=== PATIENT | female | born 1955 ===

== ENCOUNTER 2018-10-11 14:17 | Observation (INO) | payer SELFPAY ==
[2018-10-11] MEDS ORDERED: Sodium Chloride 0.9% 500 ML IV STA (17:36)
[2018-10-11] MEDS ORDERED: Sodium Chloride 0.9% 500 ML IV ONE (17:47)
--- NOTE | 2018-10-11 17:53 | C.PDOC ---
History Of Present Illness 62 year old female presents to the ED for evaluation of dizziness near syncope x3 episodes associated with shortness of breath and generalized body aches that began this morning. Patient reports having similar symptoms x1 week ago a ssociated with nausea , left-sided facial tingling, and neck pulsating. Notes she did not follow up with PMD Dr. Rivera from [facility] when the symptoms first began. Denies fever, chills, nausea/vomiting today, chest pain, facial tingling today, neck pulsating today, and any other associated symptoms. Time Seen by Provider: 10/11/18 16:51 Chief Complaint (Nursing): Dizziness/Lightheaded History Per: Patient History/Exam Limitations: no limitations Onset/Duration Of Symptoms: Days Current Symptoms Are (Timing): Still Present Past Medical History Reviewed: Historical Data, Nursing Documentation, Vital Signs Vital Signs: Last Vital Signs Temp 98.3 F 10/11/18 15:00 Pulse 77 10/11/18 15:00 Resp 18 10/11/18 15:00 BP 112/70 10/11/18 15:00 Pulse Ox 100 10/11/18 15:00 - Medical History PMH: Atrial Fibrillation (REPORTS "TACHYCARDIA" TAKING PLAVIX), HTN Family History: States: Unknown Family Hx - Social History Hx Tobacco Use: No Hx Alcohol Use: No Hx Substance Use: No Review Of Systems Except As Marked, All Systems Reviewed And Found Negative. Constitutional: Positive for: Other (generalized body weakness.). Negative for: Fever, Chills Cardiovascular: Negative for: Chest Pain Respiratory: Positive for: Shortness of Breath Gastrointestinal: Negative for: Vomiting Neurological: Positive for: Other (near syncope.). Negative for: Weakness, Numbness, Incoordination Physical Exam - Physical Exam Appears: Well, Non-toxic, No Acute Distress Skin: Normal Color, Warm, Dry Head: Atraumatic, Normacephalic Eye(s): bilateral: PERRL Oral Mucosa: Moist Neck: Normal ROM, Trachea Midline, Supple Chest: Symmetrical, No Deformity Cardiovascular: Rhythm Regular, No Murmur Respiratory: Normal Breath Sounds, No Rales, No Rhonchi, No Wheezing Extremity: Normal ROM (x4) Neurological/Psych: Oriented x3, Normal Speech, Normal Cognition, Normal Motor, Normal Sensation, Normal Reflexes ED Course And Treatment - Laboratory Results Result Diagrams: 10/11/18 17:44 10/11/18 17:44 O2 Sat by Pulse Oximetry: 100 (RA) Pulse Ox Interpretation: Normal - Other Rad CXR X-Ray: Viewed By Me, Read By Radiologist Interpretation: Accession No. : [id number]. Patient Name / ID : MONDRAGON / [id number]. Exam Date : 10/11/2018 17:40:42 ( Approved ). Study Comment : Sex / Age : F / 62Y. Creator : Flaquito Phillips MD. Dictator : Flaquito Phillips MD. Box Liner : Bods Developer : Flaquito Phillips MD. Approver2 : Report Date : 10/11/2018 18:16:48. My Comment : . Date of service: 10/11/2018. PROCEDURE: CHEST RADIOGRAPH, 1 VIEW. HISTORY: near syncope, sob. COMPARISON: None available. FINDINGS: LUNGS: Clear. PLEURA: No pneumothorax or pleural fluid seen. CARDIOVASCULAR: No aortic atherosclerotic calcification present. No radiographic findings to suggest acute or significant cardiovascular disease. OSSEOUS STRUCTURES: No significant abnormalities. VISUALIZED UPPER ABDOMEN: Normal. OTHER FINDINGS: None. IMPRESSION: No active disease. - CT Scan/US Head CT Other Rad Studies (CT/US): Read By Radiologist, Radiology Report Reviewed CT/US Interpretation: Accession No. : [id number]. Patient Name / ID : MONDRAGON / [id number]. Exam Date : 10/11/2018 18:12:36 ( Approved ). Study Comment : Sex / Age : F / 62Y. Creator : Jesus Monk MD. Dictator : Jesus Monk MD. Box Liner : Bods Developer : Jesus Monk MD. Approver2 : Report Date : 10/11/2018 18:33:37. My Comment : . Date of service: 10/11/2018. PROCEDURE: CT HEAD WITHOUT CONTRAST. HISTORY: near syncope. COMPARISON: None available. TECHNIQUE: Axial computed tomography images were obtained through the head/brain without intravenous contrast. Radiation dose: Total exam DLP = 883.33 mGy-cm. This CT exam was performed using one or more of the following dose reduction techniques: Automated exposure control, adjustment of the mA and/or kV according to patient size, and/or use of iterative reconstruction technique. FINDINGS: HEMORRHAGE: No intracranial hemorrhage. BRAIN: No mass effect or edema. No atrophy or chronic microvascular ischemic changes. VENTRICLES: Unremarkable. No hydrocephalus. CALVARIUM: Unremarkable. PARANASAL SINUSES: Unremarkable as visualized. No significant inflammatory changes. MASTOID AIR CELLS: Unremarkable as visualized. No inflammatory changes. OTHER FINDINGS: None. IMPRESSION: No evidence of acute intracranial hemorrhage mass effect or midline shift. Progress Note: PE: CT Head w/out contrast. Blood sent. CXR. Urinalysis. EKG. Disposition - Disposition Disposition Time: 19:00 Condition: FAIR Forms: [facility] (Japanese) - Clinical Impression Clinical Impression: Near syncope - PA / PAIN COORDINATOR / Resident Statement MD/DO has reviewed & agrees with the documentation as recorded. - Scribe Statement The provider has reviewed the documentation as recorded by the Scribe (Yomaira Bennett) All medical record entries made by the Scribe were at my direction and personally dictated by me. I have reviewed the chart and agree that the record accurately reflects my personal performance of the history, physical exam, medical decision making, and the department course for this patient. I have also personally directed, reviewed, and agree with the discharge instructions and disposition. Physician Patient Turnover Patient Signed Over To: Elliott Fulton Handoff Comments: pending EKG and dispo
[2018-10-11 18:05] LABS: BASO # 0.1 K/uL (0.0-0.2); EOS # 0.1 K/uL (0.0-0.7); EOS % 1.1 % (0.0-4.0); HEMOGLOBIN 12.3 g/dL (11.0-16.0); LYMPH # 3.1 K/uL (1.0-4.3); LYMPH % 36.9 % (20.0-40.0); MEAN CELL VOLUME 81.1 fL (81.0-99.0); MEAN CORPUSCULAR HEMOGLOBIN 27.2 pg (27.0-31.0); MEAN CORPUSCULAR HGB CONC 33.6 g/dL (33.0-37.0); MEAN PLATELET VOLUME 9.4 fL (7.2-11.7); MONO # 0.7 K/uL (0.0-0.8); MONO % 8.1 % (0.0-10.0); NEUT # 4.5 K/uL (1.8-7.0); NEUT % 52.9 % (50.0-75.0); RBC 4.52 Mil/uL (3.80-5.20); RED CELL DISTRIBUTION WIDTH 13.6 % (11.5-14.5); WHITE BLOOD COUNT 8.4 K/uL (4.8-10.8)
[2018-10-11 18:06] LABS: ALB/GLOB RATIO 1.1 (1.0-2.1); BLOOD UREA NITROGEN 13 mg/dL (7-17); CALCIUM 9.3 mg/dl (8.6-10.4); GFR NON-AFRICAN AMERICAN > 60
[2018-10-11 18:09] LABS: ALT/SGPT 18 U/L (9-52); AST/SGOT 31 U/L (14-36)
[2018-10-11 18:13] LABS: INR 1.1; PROTHROMBIN TIME 11.9 SECONDS (9.7-12.2)
[2018-10-11 18:17] LABS: CK-MB 0.54 ng/mL (0.0-3.38)
--- NOTE | 2018-10-11 18:20 | RAD ---
Date of service: 10/11/2018 PROCEDURE: CHEST RADIOGRAPH, 1 VIEW HISTORY: near syncope, sob COMPARISON: None available. FINDINGS: LUNGS: Clear. PLEURA: No pneumothorax or pleural fluid seen. CARDIOVASCULAR: No aortic atherosclerotic calcification present. No radiographic findings to suggest acute or significant cardiovascular disease. OSSEOUS STRUCTURES: No significant abnormalities. VISUALIZED UPPER ABDOMEN: Normal. OTHER FINDINGS: None. IMPRESSION: No active disease.
--- NOTE | 2018-10-11 18:37 | CT ---
Date of service: 10/11/2018 PROCEDURE: CT HEAD WITHOUT CONTRAST. HISTORY: near syncope COMPARISON: None available. TECHNIQUE: Axial computed tomography images were obtained through the head/brain without intravenous contrast. Radiation dose: Total exam DLP = 883.33 mGy-cm. This CT exam was performed using one or more of the following dose reduction techniques: Automated exposure control, adjustment of the mA and/or kV according to patient size, and/or use of iterative reconstruction technique. FINDINGS: HEMORRHAGE: No intracranial hemorrhage. BRAIN: No mass effect or edema. No atrophy or chronic microvascular ischemic changes. VENTRICLES: Unremarkable. No hydrocephalus. CALVARIUM: Unremarkable. PARANASAL SINUSES: Unremarkable as visualized. No significant inflammatory changes. MASTOID AIR CELLS: Unremarkable as visualized. No inflammatory changes. OTHER FINDINGS: None. IMPRESSION: No evidence of acute intracranial hemorrhage mass effect or midline shift.
[2018-10-11 20:12] LABS: SQUAMOUS EPITHIAL 1 /hpf (0-5); URINE BILIRUBIN NEGATIVE (NEGATIVE); URINE BLOOD TRACE (NEGATIVE); URINE CLARITY Clear (Clear); URINE COLOR Colorless (YELLOW); URINE GLUCOSE (UA) NORMAL (Normal); URINE LEUKOCYTE ESTERASE NEG Leu/uL (Negative); URINE PROTEIN NEGATIVE (NEGATIVE); URINE UROBILINOGEN NORMAL mg/dL (0.2-1.0)
--- NOTE | 2018-10-12 02:05 | CP.PCM.HP ---
<Zulema Johnson - Last Filed: 10/12/18 01:57> History of Present Illness - History of Present Illness History of Present Illness: cc: "dizziness" Ms. Singh Linares is a 62 year old [place] female PMH tachycardia, childhood ear infections complaining of 3 dizzy spells today leading to near syncope. She has had a constant high pitched tinnitus for years and transitory dizzy spells over the last two years. Today, she had 3 dizzy spells in one day: 7:40am, 8am, and 8:30am. All three times, she felt her knees go weak and family caught her fall while she slid down (to the floor, onto the bed, etc). She had no loss of consciousness and the dizziness immediately resolved, but she had a lingering pulsating posterior neck pain. This happened two time last week, but this is the first time that multiple episodes have happened in the same day. There is associated headache and nausea, but no vomiting. PMD: [facility] - Dr. Rivera PMH: tachycardia, childhood ear infections Med: Plavix, Atenolol All: NKDA PSxHx: hysterectomy 2/2 fibroids FamHx: father-colon CA: @83, mother-pacemaker: alive SocHx: Denies tobacco Present on Admission - Present on Admission Any Indicators Present on Admission: No Review of Systems - Constitutional Constitutional: Headache - EENT Ears: Decreased Hearing, Tinnitus, Dizziness - Gastrointestinal Gastrointestinal: Nausea. absent: Vomiting Past Patient History - Past Medical History & Family History Pertinent Family History: father-colon CA: @83, mother-pacemaker: alive - Past Social History Smoking Status: Never Smoked - CARDIAC Hx Atrial Fibrillation: Yes (REPORTS "TACHYCARDIA" TAKING PLAVIX) Hx Hypertension: Yes - PSYCHIATRIC Hx Substance Use: No - SURGICAL HISTORY Hx Hysterectomy: Yes - ANESTHESIA Hx Anesthesia: Yes Hx Anesthesia Reactions: No Meds Allergies/Adverse Reactions: Allergies Allergy/AdvReac Type Severity Reaction Status Date / Time No Known Allergies Allergy Verified 10/11/18 15:08 Physical Exam - Constitutional Appears: Well, No Acute Distress - Head Exam Head Exam: ATRAUMATIC, NORMOCEPHALIC - Eye Exam Eye Exam: EOMI, PERRL Pupil Exam: NORMAL ACCOMODATION - ENT Exam ENT Exam: Mucous Membranes Moist, TM's Normal Bilaterally Additional comments: otoscope exam normal: tympanic membranes visualized with good light reflex symmetric hearing to finger rub, decreased hearing in both ears - Neck Exam Neck exam: Positive for: Normal Inspection. Negative for: Lymphadenopathy, Tenderness (no paraspinial tenderness), Thyromegaly - Respiratory Exam Respiratory Exam: Clear to Auscultation Bilateral, NORMAL BREATHING PATTERN. absent: Rales, Rhonchi, Wheezes - Cardiovascular Exam Cardiovascular Exam: REGULAR RHYTHM, +S1, +S2. absent: Systolic Murmur - GI/Abdominal Exam GI & Abdominal Exam: Normal Bowel Sounds, Soft. absent: Tenderness Additional comments: obese - Extremities Exam Extremities exam: Positive for: normal capillary refill, pedal pulses present. Negative for: calf tenderness, pedal edema Additional comments: IV access in R hand - Neurological Exam Neurological exam: Alert, CN II-XII Intact, Oriented x3, Reflexes Normal - Psychiatric Exam Psychiatric exam: Normal Affect, Normal Mood - Skin Skin Exam: Dry, Intact, Normal Color, Warm Results - Vital Signs Recent Vital Signs: Last Vital Signs Temp 98.1 F 10/11/18 22:57 Pulse 73 10/11/18 22:57 Resp 18 10/11/18 22:57 BP 132/70 10/11/18 22:57 Pulse Ox 100 10/11/18 22:57 - Labs Result Diagrams: 10/11/18 17:44 10/11/18 17:44 Labs: Laboratory Results - last 24 hr 10/11/18 10/11/18 10/11/18 17:44 17:44 17:57 WBC 8.4 RBC 4.52 Hgb 12.3 Hct 36.7 MCV 81.1 MCH 27.2 MCHC 33.6 RDW 13.6 Plt Count 324 MPV 9.4 Neut % (Auto) 52.9 Lymph % (Auto) 36.9 [place] % (Auto) 8.1 Eos % (Auto) 1.1 Baso % (Auto) 1.0 Neut # (Auto) 4.5 Lymph # (Auto) 3.1 [place] # (Auto) 0.7 Eos # (Auto) 0.1 Baso # (Auto) 0.1 PT 11.9 INR 1.1 APTT 31 Sodium 137 Potassium 4.9 Chloride 104 Carbon Dioxide 20 L Anion Gap 18 BUN 13 Creatinine 0.6 L Est GFR ( Amer) > 60 Est GFR (Non-Af Amer) > 60 Random Glucose 87 Calcium 9.3 Total Bilirubin 0.7 AST 31 ALT 18 Alkaline Phosphatase 59 Total Creatine Kinase 81 CK-MB (Mass) 0.54 Troponin I < 0.0120 Total Protein 7.5 Albumin 4.0 Globulin 3.5 Albumin/Globulin Ratio 1.1 Urine Color Urine Clarity Urine pH Ur Specific [place] Urine Protein Urine Glucose (UA) Urine Ketones Urine Blood Urine Nitrate Urine Bilirubin Urine Urobilinogen Ur Leukocyte Esterase Urine WBC (Auto) Urine RBC (Auto) Ur Squamous Epith Cells 10/11/18 20:02 WBC RBC Hgb Hct MCV MCH MCHC RDW Plt Count MPV Neut % (Auto) Lymph % (Auto) [place] % (Auto) Eos % (Auto) Baso % (Auto) Neut # (Auto) Lymph # (Auto) [place] # (Auto) Eos # (Auto) Baso # (Auto) PT INR APTT Sodium Potassium Chloride Carbon Dioxide Anion Gap BUN Creatinine Est GFR ( Amer) Est GFR (Non-Af Amer) Random Glucose Calcium Total Bilirubin AST ALT Alkaline Phosphatase Total Creatine Kinase CK-MB (Mass) Troponin I Total Protein Albumin Globulin Albumin/Globulin Ratio Urine Color Colorless Urine Clarity Clear Urine pH 6.0 Ur Specific [place] 1.005 Urine Protein Negative Urine Glucose (UA) Normal Urine Ketones Negative Urine Blood Trace H Urine Nitrate Negative Urine Bilirubin Negative Urine Urobilinogen Normal Ur Leukocyte Esterase Neg Urine WBC (Auto) 1 Urine RBC (Auto) 2 Ur Squamous Epith Cells 1 - EKG Data EKG Interpreted by: ER Physician EKG shows normal: Sinus rhythm Rate: Normal Assessment & Plan - Assessment and Plan (Free Text) Assessment: 62yo F PMH tachycardia, childhood ear infections admitted for vertigo. Plan: Vertigo - EKG (10/11): NSR@72 - CXR (10/11): no active disease - CT Head (10/11): no acute intracranial hemorrhage, mass effect, or midline shift - BW unremarkable, UA neg - Trop neg - 1L NS given in ED - patient is now asymptomatic - ENT consulted: Dr. Coreas - help appreciated Tachycardia - home Atenolol 50mg po daily - monitor vitals PPx - DVT: DVT risk score 1, SCDs only. home Plavix held - no apparent indication. - GI: not indicated - Diet: HHD 2g Na d/w Dr. Sanjuana Johnson PGY-1 - Date & Time Date: 10/11/18 Time: 20:45 <Wilfrido Wei - Last Filed: 10/12/18 09:16> Results - Vital Signs Recent Vital Signs: Last Vital Signs Temp 98.9 F 10/12/18 08:52 Pulse 73 10/12/18 08:52 Resp 20 10/12/18 08:52 BP 112/75 10/12/18 08:52 Pulse Ox 100 10/12/18 08:52 - Labs Result Diagrams: 10/12/18 07:59 10/12/18 07:59 Labs: Laboratory Results - last 24 hr 10/11/18 10/11/18 10/11/18 15:08 17:44 17:44 WBC 8.4 RBC 4.52 Hgb 12.3 Hct 36.7 MCV 81.1 MCH 27.2 MCHC 33.6 RDW 13.6 Plt Count 324 MPV 9.4 Neut % (Auto) 52.9 Lymph % (Auto) 36.9 [place] % (Auto) 8.1 Eos % (Auto) 1.1 Baso % (Auto) 1.0 Neut # (Auto) 4.5 Lymph # (Auto) 3.1 [place] # (Auto) 0.7 Eos # (Auto) 0.1 Baso # (Auto) 0.1 PT INR APTT Sodium 137 Potassium 4.9 Chloride 104 Carbon Dioxide 20 L Anion Gap 18 BUN 13 Creatinine 0.6 L Est GFR ( Amer) > 60 Est GFR (Non-Af Amer) > 60 POC Glucose (mg/dL) 122 H Random Glucose 87 Calcium 9.3 Phosphorus Magnesium Total Bilirubin 0.7 AST 31 ALT 18 Alkaline Phosphatase 59 Total Creatine Kinase 81 CK-MB (Mass) 0.54 Troponin I < 0.0120 Total Protein 7.5 Albumin 4.0 Globulin 3.5 Albumin/Globulin Ratio 1.1 Urine Color Urine Clarity Urine pH Ur Specific [place] Urine Protein Urine Glucose (UA) Urine Ketones Urine Blood Urine Nitrate Urine Bilirubin Urine Urobilinogen Ur Leukocyte Esterase Urine WBC (Auto) Urine RBC (Auto) Ur Squamous Epith Cells 10/11/18 10/11/18 10/12/18 17:57 20:02 07:59 WBC 7.2 RBC 4.36 Hgb 11.9 Hct 34.8 MCV 80.0 L MCH 27.3 MCHC 34.1 RDW 13.4 Plt Count 328 MPV 9.4 Neut % (Auto) 48.2 L Lymph % (Auto) 40.7 H [place] % (Auto) 8.0 Eos % (Auto) 1.7 Baso % (Auto) 1.4 Neut # (Auto) 3.4 Lymph # (Auto) 2.9 [place] # (Auto) 0.6 Eos # (Auto) 0.1 Baso # (Auto) 0.1 PT 11.9 INR 1.1 APTT 31 Sodium Potassium Chloride Carbon Dioxide Anion Gap BUN Creatinine Est GFR ( Amer) Est GFR (Non-Af Amer) POC Glucose (mg/dL) Random Glucose Calcium Phosphorus Magnesium Total Bilirubin AST ALT Alkaline Phosphatase Total Creatine Kinase CK-MB (Mass) Troponin I Total Protein Albumin Globulin Albumin/Globulin Ratio Urine Color Colorless Urine Clarity Clear Urine pH 6.0 Ur Specific [place] 1.005 Urine Protein Negative Urine Glucose (UA) Normal Urine Ketones Negative Urine Blood Trace H Urine Nitrate Negative Urine Bilirubin Negative Urine Urobilinogen Normal Ur Leukocyte Esterase Neg Urine WBC (Auto) 1 Urine RBC (Auto) 2 Ur Squamous Epith Cells 1 10/12/18 07:59 WBC RBC Hgb Hct MCV MCH MCHC RDW Plt Count MPV Neut % (Auto) Lymph % (Auto) [place] % (Auto) Eos % (Auto) Baso % (Auto) Neut # (Auto) Lymph # (Auto) [place] # (Auto) Eos # (Auto) Baso # (Auto) PT INR APTT Sodium 138 Potassium 4.0 Chloride 103 Carbon Dioxide 25 Anion Gap 14 BUN 8 Creatinine 0.5 L Est GFR ( Amer) > 60 Est GFR (Non-Af Amer) > 60 POC Glucose (mg/dL) Random Glucose 95 Calcium 8.4 L Phosphorus 4.0 Magnesium 2.0 Total Bilirubin 0.7 AST 17 ALT 20 Alkaline Phosphatase 59 Total Creatine Kinase CK-MB (Mass) Troponin I Total Protein 6.7 Albumin 3.7 Globulin 3.0 Albumin/Globulin Ratio 1.2 Urine Color Urine Clarity Urine pH Ur Specific [place] Urine Protein Urine Glucose (UA) Urine Ketones Urine Blood Urine Nitrate Urine Bilirubin Urine Urobilinogen Ur Leukocyte Esterase Urine WBC (Auto) Urine RBC (Auto) Ur Squamous Epith Cells Attending/Attestation - Attestation I have personally seen and examined this patient.: Yes I have fully participated in the care of the patient.: Yes I have reviewed all pertinent clinical information: Yes Notes (Text): 10/12/18 09:11 * Episodic vertigo clinically from irritation of vestibulocochear system from h/o chronic ear infection, with h/o some reduced hearing, h/o tinitis, many years for history for hearing symptoms. No vertigo or symptoms at time of exam. Patient on plavix for non specific chest pain, could be discontinued by pmd. Plan * Observe overnigh * Outpatient or inpatient ENT eval * PRN meclizine at home during attacks * Informed about vertigo. * See orders for detail.
[2018-10-12 04:31] VITALS: RESP 20
[2018-10-12 04:56] VITALS: O2SAT 100
[2018-10-12 08:10] LABS: BASO # 0.1 K/uL (0.0-0.2); BASO % 1.4 % (0.0-2.0); EOS # 0.1 K/uL (0.0-0.7); EOS % 1.7 % (0.0-4.0); HEMOGLOBIN 11.9 g/dL (11.0-16.0); LYMPH # 2.9 K/uL (1.0-4.3); LYMPH % 40.7 % (20.0-40.0); MEAN CORPUSCULAR HEMOGLOBIN 27.3 pg (27.0-31.0); MEAN CORPUSCULAR HGB CONC 34.1 g/dL (33.0-37.0); MEAN PLATELET VOLUME 9.4 fL (7.2-11.7); MONO # 0.6 K/uL (0.0-0.8); NEUT # 3.4 K/uL (1.8-7.0); NEUT % 48.2 % (50.0-75.0); RBC 4.36 Mil/uL (3.80-5.20); RED CELL DISTRIBUTION WIDTH 13.4 % (11.5-14.5); WHITE BLOOD COUNT 7.2 K/uL (4.8-10.8)
[2018-10-12 08:23] LABS: ALB/GLOB RATIO 1.2 (1.0-2.1); ALBUMIN 3.7 g/dL (3.5-5.0); ALT/SGPT 20 U/L (9-52); AST/SGOT 17 U/L (14-36); BLOOD UREA NITROGEN 8 mg/dL (7-17); CALCIUM 8.4 mg/dl (8.6-10.4); GFR NON-AFRICAN AMERICAN > 60
[2018-10-12 08:55] VITALS: BP 112/75; PULSE 73; TEMP 98.9
[2018-10-12] MEDS ORDERED: Enoxaparin 40 mg Syringe SC SCH (10:00)
--- NOTE | 2018-10-12 13:36 | CP.PCM.DIS ---
<Taya Mccracken - Last Filed: 10/12/18 13:31> Provider - Provider Date of Admission: 10/11/18 19:35 Attending physician: Wilfrido Wei MD Time Spent in preparation of Discharge (in minutes): 45 Hospital Course - Lab Results Lab Results: Most Recent Lab Values WBC 7.2 K/uL (4.8-10.8) 10/12/18 07:59 RBC 4.36 Mil/uL (3.80-5.20) 10/12/18 07:59 Hgb 11.9 g/dL (11.0-16.0) 10/12/18 07:59 Hct 34.8 % (34.0-47.0) 10/12/18 07:59 MCV 80.0 fL (81.0-99.0) L 10/12/18 07:59 MCH 27.3 pg (27.0-31.0) 10/12/18 07:59 MCHC 34.1 g/dL (33.0-37.0) 10/12/18 07:59 RDW 13.4 % (11.5-14.5) 10/12/18 07:59 Plt Count 328 K/uL (130-400) 10/12/18 07:59 MPV 9.4 fL (7.2-11.7) 10/12/18 07:59 Neut % (Auto) 48.2 % (50.0-75.0) L 10/12/18 07:59 Lymph % (Auto) 40.7 % (20.0-40.0) H 10/12/18 07:59 Hampton % (Auto) 8.0 % (0.0-10.0) 10/12/18 07:59 Eos % (Auto) 1.7 % (0.0-4.0) 10/12/18 07:59 Baso % (Auto) 1.4 % (0.0-2.0) 10/12/18 07:59 Neut # (Auto) 3.4 K/uL (1.8-7.0) 10/12/18 07:59 Lymph # (Auto) 2.9 K/uL (1.0-4.3) 10/12/18 07:59 [place] # (Auto) 0.6 K/uL (0.0-0.8) 10/12/18 07:59 Eos # (Auto) 0.1 K/uL (0.0-0.7) 10/12/18 07:59 Baso # (Auto) 0.1 K/uL (0.0-0.2) 10/12/18 07:59 PT 11.9 SECONDS (9.7-12.2) 10/11/18 17:57 INR 1.1 10/11/18 17:57 APTT 31 SECONDS (21-34) 10/11/18 17:57 Sodium 138 mmol/L (132-148) 10/12/18 07:59 Potassium 4.0 mmol/L (3.6-5.2) 10/12/18 07:59 Chloride 103 mmol/L (98-107) 10/12/18 07:59 Carbon Dioxide 25 mmol/L (22-30) 10/12/18 07:59 Anion Gap 14 (10-20) 10/12/18 07:59 BUN 8 mg/dL (7-17) 10/12/18 07:59 Creatinine 0.5 mg/dL (0.7-1.2) L 10/12/18 07:59 Est GFR ( Amer) > 60 10/12/18 07:59 Est GFR (Non-Af Amer) > 60 10/12/18 07:59 POC Glucose (mg/dL) 122 mg/dL (65-110) H 10/11/18 15:08 Random Glucose 95 mg/dL (65-105) 10/12/18 07:59 Calcium 8.4 mg/dl (8.6-10.4) L 10/12/18 07:59 Phosphorus 4.0 mg/dL (2.5-4.5) 10/12/18 07:59 Magnesium 2.0 mg/dL (1.6-2.3) 10/12/18 07:59 Total Bilirubin 0.7 mg/dL (0.2-1.3) 10/12/18 07:59 AST 17 U/L (14-36) 10/12/18 07:59 ALT 20 U/L (9-52) 10/12/18 07:59 Alkaline Phosphatase 59 U/L (38-126) 10/12/18 07:59 Total Creatine Kinase 81 U/L (30-135) 10/11/18 17:44 CK-MB (Mass) 0.54 ng/mL (0.0-3.38) 10/11/18 17:44 Troponin I < 0.0120 ng/mL (0.00-0.120) 10/11/18 17:44 Total Protein 6.7 g/dL (6.3-8.3) 10/12/18 07:59 Albumin 3.7 g/dL (3.5-5.0) 10/12/18 07:59 Globulin 3.0 gm/dL (2.2-3.9) 10/12/18 07:59 Albumin/Globulin Ratio 1.2 (1.0-2.1) 10/12/18 07:59 Urine Color Colorless (YELLOW) 10/11/18 20: Urine Clarity Clear (Clear) 10/11/18 20: Urine pH 6.0 (5.0-8.0) 10/11/18 20:02 Ur Specific Usk 1.005 (1.003-1.030) 10/11/18 20: Urine Protein Negative mg/dL (NEGATIVE) 10/11/18 20:02 Urine Glucose (UA) Normal mg/dL (Normal) 10/11/18 20: Urine Ketones Negative mg/dL (NEGATIVE) 10/11/18 20: Urine Blood Trace (NEGATIVE) H 10/11/18 20:02 Urine Nitrate Negative (NEGATIVE) 10/11/18 20:02 Urine Bilirubin Negative (NEGATIVE) 10/11/18 20: Urine Urobilinogen Normal mg/dL (0.2-1.0) 10/11/18 20:02 Ur Leukocyte Esterase Neg Tate/uL (Negative) 10/11/18 20:02 Urine WBC (Auto) 1 /hpf (0-5) 10/11/18 20:02 Urine RBC (Auto) 2 /hpf (0-3) 10/11/18 20:02 Ur Squamous Epith Cells 1 /hpf (0-5) 10/11/18 20:02 - Hospital Course Hospital Course: Upon Admission Ms. Singh Linares is a 62 year old Eduardo female PMH tachycardia, ch ildhood ear infections complaining of 3 dizzy spells today leading to near syncope. She has had a constant high pitched tinnitus for years and transitory dizzy spells over the last two years. Today, she had 3 dizzy spells in one day: 7:40am, 8am, and 8:30am. All three times, she felt her knees go weak and family caught her fall while she slid down (to the floor, onto the bed, etc). She had no loss of consciousness and the dizziness immediately resolved, but she had a lingering pulsating posterior neck pain. This happened two time last week, but this is the first time that multiple episodes have happened in the same day. There is associated headache and nausea, but no vomiting. Hospital Course Patient was admitted to hospital for presyncope. Patient was placed on telemetry floor with patient monitor overnight. Patient's dizziness spell resolved on its own after the third episode yesterday. Patient was monitored overnight with no acute events. ENT was consulted and they signed off on the patient with no intervention. Patient was discharged with instructions to followup primary medical doctor. Patient was discharged with antivert to use as needed. Discharge Plan 1. Patient is stable for discharge to home as per Dr. Nicolas 2. Patient is to resume all home medications as as prescribed. Patient is educated that she will be discharged with Antivert to be taken as needed for dizziness. Patient is educated to take one during her dizziness spell. 3. Patient is educated to followup with primary medical doctor within 3-5 days of discharge from hospital. 4. Patient should return to hospital if symptoms worsen or recur. 5. Patient understands the plan as above and agrees. Disclaimer: Written above is a synopsis of patient's current hospital admission. For full report refer to EMR. Discharge Exam - Head Exam Head Exam: ATRAUMATIC, NORMAL INSPECTION, NORMOCEPHALIC - Eye Exam Eye Exam: EOMI, Normal appearance. absent: Nystagmus, Scleral icterus - ENT Exam ENT Exam: Mucous Membranes Moist - Respiratory Exam Respiratory Exam: NORMAL BREATHING PATTERN. absent: Rales, Rhonchi, Wheezes, Respiratory Distress - Cardiovascular Exam Cardiovascular Exam: REGULAR RHYTHM, +S1, +S2. absent: Tachycardia - GI/Abdominal Exam GI & Abdominal Exam: Normal Bowel Sounds, Soft. absent: Distended, Firm, Guarding, Hernia, Tenderness - Extremities Exam Extremities exam: normal inspection - Neurological Exam Neurological exam: Alert, Normal Gait, Oriented x3 - Psychiatric Exam Psychiatric exam: Normal Affect, Normal Mood - Skin Skin Exam: Intact, Normal Color Discharge Plan - Discharge Medications Prescriptions: RX: Meclizine [Meclizine*] 25 mg PO PRN PRN #30 tab PRN Reason: Dizziness - Follow Up Plan Condition: GOOD Disposition: HOME/ ROUTINE Instructions: Syncope (Fainting), Syncope (Fainting) (DC), Meclizine Additional Instructions: 1. Patient is stable for discharge to home as per Dr. Nicolas 2. Patient is to resume all home medications as as prescribed. Patient is educated that she will be discharged with Antivert to be taken as needed for dizziness. Patient is educated to take one during her dizziness spell. 3. Patient is educated to followup with primary medical doctor within 3-5 days of discharge from hospital. 4. Patient should return to hospital if symptoms worsen or recur. 5. Patient understands the plan as above and agrees. <Teofilo Nicolas H - Last Filed: 10/12/18 16:25> Provider - Provider Date of Admission: 10/11/18 19:35 Attending physician: Wilfrido Wei MD Hospital Course - Lab Results Lab Results: Most Recent Lab Values WBC 7.2 K/uL (4.8-10.8) 10/12/18 07:59 RBC 4.36 Mil/uL (3.80-5.20) 10/12/18 07:59 Hgb 11.9 g/dL (11.0-16.0) 10/12/18 07:59 Hct 34.8 % (34.0-47.0) 10/12/18 07:59 MCV 80.0 fL (81.0-99.0) L 10/12/18 07:59 MCH 27.3 pg (27.0-31.0) 10/12/18 07:59 MCHC 34.1 g/dL (33.0-37.0) 10/12/18 07:59 RDW 13.4 % (11.5-14.5) 10/12/18 07:59 Plt Count 328 K/uL (130-400) 10/12/18 07:59 MPV 9.4 fL (7.2-11.7) 10/12/18 07:59 Neut % (Auto) 48.2 % (50.0-75.0) L 10/12/18 07:59 Lymph % (Auto) 40.7 % (20.0-40.0) H 10/12/18 07:59 [place] % (Auto) 8.0 % (0.0-10.0) 10/12/18 07:59 Eos % (Auto) 1.7 % (0.0-4.0) 10/12/18 07:59 Baso % (Auto) 1.4 % (0.0-2.0) 10/12/18 07:59 Neut # (Auto) 3.4 K/uL (1.8-7.0) 10/12/18 07:59 Lymph # (Auto) 2.9 K/uL (1.0-4.3) 10/12/18 07:59 [place] # (Auto) 0.6 K/uL (0.0-0.8) 10/12/18 07:59 Eos # (Auto) 0.1 K/uL (0.0-0.7) 10/12/18 07:59 Baso # (Auto) 0.1 K/uL (0.0-0.2) 10/12/18 07:59 PT 11.9 SECONDS (9.7-12.2) 10/11/18 17:57 INR 1.1 10/11/18 17:57 APTT 31 SECONDS (21-34) 10/11/18 17:57 Sodium 138 mmol/L (132-148) 10/12/18 07:59 Potassium 4.0 mmol/L (3.6-5.2) 10/12/18 07:59 Chloride 103 mmol/L (98-107) 10/12/18 07:59 Carbon Dioxide 25 mmol/L (22-30) 10/12/18 07:59 Anion Gap 14 (10-20) 10/12/18 07:59 BUN 8 mg/dL (7-17) 10/12/18 07:59 Creatinine 0.5 mg/dL (0.7-1.2) L 10/12/18 07:59 Est GFR ( Amer) > 60 10/12/18 07:59 Est GFR (Non-Af Amer) > 60 10/12/18 07:59 POC Glucose (mg/dL) 122 mg/dL (65-110) H 10/11/18 15:08 Random Glucose 95 mg/dL (65-105) 10/12/18 07:59 Calcium 8.4 mg/dl (8.6-10.4) L 10/12/18 07:59 Phosphorus 4.0 mg/dL (2.5-4.5) 10/12/18 07:59 Magnesium 2.0 mg/dL (1.6-2.3) 10/12/18 07:59 Total Bilirubin 0.7 mg/dL (0.2-1.3) 10/12/18 07:59 AST 17 U/L (14-36) 10/12/18 07:59 ALT 20 U/L (9-52) 10/12/18 07:59 Alkaline Phosphatase 59 U/L (38-126) 10/12/18 07:59 Total Creatine Kinase 81 U/L (30-135) 10/11/18 17:44 CK-MB (Mass) 0.54 ng/mL (0.0-3.38) 10/11/18 17:44 Troponin I < 0.0120 ng/mL (0.00-0.120) 10/11/18 17:44 Total Protein 6.7 g/dL (6.3-8.3) 10/12/18 07:59 Albumin 3.7 g/dL (3.5-5.0) 10/12/18 07:59 Globulin 3.0 gm/dL (2.2-3.9) 10/12/18 07:59 Albumin/Globulin Ratio 1.2 (1.0-2.1) 10/12/18 07:59 Urine Color Colorless (YELLOW) 10/11/18 20:02 Urine Clarity Clear (Clear) 10/11/18 20:02 Urine pH 6.0 (5.0-8.0) 10/11/18 20:02 Ur Specific Usk 1.005 (1.003-1.030) 10/11/18 20:02 Urine Protein Negative mg/dL (NEGATIVE) 10/11/18 20:02 Urine Glucose (UA) Normal mg/dL (Normal) 10/11/18 20:02 Urine Ketones Negative mg/dL (NEGATIVE) 10/11/18 20:02 Urine Blood Trace (NEGATIVE) H 10/11/18 20:02 Urine Nitrate Negative (NEGATIVE) 10/11/18 20:02 Urine Bilirubin Negative (NEGATIVE) 10/11/18 20:02 Urine Urobilinogen Normal mg/dL (0.2-1.0) 10/11/18 20:02 Ur Leukocyte Esterase Neg Tate/uL (Negative) 10/11/18 20:02 Urine WBC (Auto) 1 /hpf (0-5) 10/11/18 20:02 Urine RBC (Auto) 2 /hpf (0-3) 10/11/18 20:02 Ur Squamous Epith Cells 1 /hpf (0-5) 10/11/18 20:02 Attending/Attestation - Attestation I have personally seen and examined this patient.: Yes I have fully participated in the care of the patient.: Yes I have reviewed all pertinent clinical information, including history, physical exam and plan: Yes Notes (Text): 10/12/18 16:15 Medical attending: Patient was seen and examined by me. Agree with the above note by the resident. The patient was able to ambulate in the hallway on exam. She was able to stand on each foot time and balance herself on each foot The patient on telemetry when walking was NSR and HR was in the 90s. She denied chest pain and denied shortness of breath, denied palpitations as well. Overnight she had a CT scan of the head which was stable. Per translation the patient has had these intermittent episodes of dizziness for several years now and does report there have been have been some changes to her hearing as well. We will discharge patient and also with hollow handle bench worker suggested that she should later see ENT outpatient at some point Teofilo Nicolas
--- NOTE | 2018-10-12 17:08 | CARD ---
APPROVED REPORT Date of service: 10/11/2018 EKG Measurement Heart [id number] <Conclusion> Normal sinus rhythm Normal ECG
--- NOTE | 2018-10-12 23:05 | CON ---
DATE: 10/12/2018 REASON FOR CONSULTATION: Dizziness. HISTORY OF PRESENT ILLNESS: This is a 62-year-old female who had three episodes of severe dizziness yesterday, three episodes, on and off. There was no vertiginous feeling. No hearing loss. No ringing in the ear. No nasal congestion. No throat pain. The dizziness is gone and is asymptomatic. She can ambulate safely and can tolerate p.o. at this point. PAST MEDICAL HISTORY: As noted in the chart by me. MEDICATIONS: As noted in the chart by me. PHYSICAL EXAMINATION: HEAD: Atraumatic and normocephalic. FACE: Good facial movements bilaterally. CONSTITUTIONAL: Well fed, well nourished. COMMUNICATIONS: Communicates well and appropriately. EXTERNAL NOSE AND EARS: No masses. No lesions. No erythema. No edema. INTERNAL NOSE AND EARS: Deviated septum. No masses. No lesions. No erythema. No edema. ORAL CAVITY AND OROPHARYNX: No masses. No lesions. No erythema. No edema. LIPS AND GUMS: No masses. No lesions. No erythema. No edema. NECK: Supple. THYROID: No thyromegaly. No goiter. LYMPH NODES: No lymphadenopathy of the neck. NEUROLOGIC: The patient is alert, awake, and oriented x3. ASSESSMENT: 1. Dizziness. 2. Deviated septum. PLAN: Dizziness unlikely to be from the ears; however, the patient should have VNG (vestibular nystagmogram) done as an outpatient. The patient also needs to have an MRI done, however, that can also be done as an outpatient. The patient is okay to be discharged home from my point of view as long as okay by Neurology. Young Coreas MD
== END 2018-10-12 13:52 | disposition home or self-care (01) ==
LOC: C.ER 14:17 → C.9E 19:35 → C.6T 22:14 → C.9E 22:16 → C.6T 22:35
PROVIDERS: ADMIT Internal Medicine; ATTEND Internal Medicine
DX: R55 Syncope and collapse (principal); R42 Dizziness and giddiness; J34.2 Deviated nasal septum; I48.91 Unspecified atrial fibrillation; I10 Essential (primary) hypertension
CPT/HCPCS: 36415; 70450; 71045; 80053; 81001; 82550; 82553; 82948; 83735; 84100; 84484; 85025; 85610; 85730; 93005; 97116; 97161; 99285; G0378; G8978; G8979; G8980; J1650; J7040

== ENCOUNTER 2019-03-02 08:49 | Outpatient (CLI) | payer SELFPAY | END 2019-03-02 08:50 | disposition home or self-care (01) | LOC: C.LAB 08:49 | DX: R73.09 Other abnormal glucose (principal) ==